=== PATIENT | female | born 1995 | race Caucasian/White ===

== ENCOUNTER → 2018-04-09 | Outpatient (CLI) | payer BC ==
[2018-04-09 16:45] LABS: BASO # 0.1 (0.0-0.2); BASO % 0.7 % (0.0-2.0); EOS % 0.3 % (0-4.0); GRAN # 3.9 (1.4-6.5); GRAN % 54.9 % (42.2-75.2); HEMATOCRIT 40.2 % (37.0-47.0); HEMOGLOBIN 13.6 g/dl (12.5-16.0); LYMPH # 2.5 (1.2-3.4); LYMPH % 35.8 % (20.0-51.0); MEAN CELL VOLUME 89 fl (80.0-100.0); MEAN CORPUSCULAR HEMOGLOBIN 30 pg (27.0-31.0); MEAN CORPUSCULAR HGB CONC 34 g/dl (33.0-37.0); MEAN PLATELET VOLUME 10.4 fl (7.4-10.4); MONO # 0.6 (0.1-0.6); PLATELET COUNT 307 K/mm3 (130-400); REDCELL DISTRIBUTION WIDTH-CV 12.6 % (11.5-14.5)
== END ==
LOC: ZCOL.LAB 16:26
PROVIDERS: Family Medicine
DX: R53.83 Other fatigue (principal); R23.8 Other skin changes

== ENCOUNTER → 2018-12-24 | Outpatient (CLI) | payer BC ==
[2018-12-24 16:30] LABS: BASO % 0.5 % (0.0-2.0); EOS % 0.3 % (0-4.0); GRAN # 3.9 (1.4-6.5); GRAN % 52.7 % (42.2-75.2); HEMATOCRIT 39.5 % (37.0-47.0); HEMOGLOBIN 13.3 g/dl (12.5-16.0); LYMPH % 39.8 % (20.0-51.0); MEAN CELL VOLUME 89 fl (80.0-100.0); MEAN CORPUSCULAR HEMOGLOBIN 30 pg (27.0-31.0); MEAN CORPUSCULAR HGB CONC 34 g/dl (33.0-37.0); MEAN PLATELET VOLUME 9.8 fl (7.4-10.4); MONO # 0.5 (0.1-0.6); MONO % 6.4 % (1.7-9.3); PLATELET COUNT 292 K/mm3 (130-400); RED BLOOD COUNT 4.45 M/mm3 (4.10-5.30); REDCELL DISTRIBUTION WIDTH-CV 12.4 % (11.5-14.5)
[2018-12-24 16:43] LABS: ALBUMIN 4.4 gm/dL (3.5-5.0); BILIRUBIN,TOTAL 0.3 mg/dL (0.0-1.0); CALCIUM 9.3 mg/dL (8.4-10.2); CREATININE, serum 0.6 (0.52-1.25); TOTAL PROTEIN 8.1 gm/dL (6.4-8.2)
[2018-12-24 16:47] LABS: POTASSIUM 3.9 mmol/L (3.4-5.0)
== END ==
LOC: COL.LAB 15:42
PROVIDERS: Family Medicine
DX: R19.4 Change in bowel habit (principal); R10.9 Unspecified abdominal pain

== ENCOUNTER → 2019-04-02 | Outpatient (CLI) | payer BC ==
[2019-04-02 18:38] LABS: HIV 1/2 Antibodies Non-Reactive; HIV-1p24 Antigen Non-Reactive
== END ==
LOC: ZCOL.LAB 16:28
PROVIDERS: Family Medicine
DX: Z11.3 Encounter for screening for infections with a predominantly sexual mode of transmission (principal); Z11.4 Encounter for screening for human immunodeficiency virus [HIV]

== ENCOUNTER → 2019-09-25 | Outpatient (CLI) | payer BC | LOC: ZCOL.LAB 15:12 | DX: R07.9 Chest pain, unspecified (principal) ==

== ENCOUNTER → 2020-01-06 | Outpatient (CLI) | payer SELFPAY | LOC: COL.LAB 16:04 | DX: R19.7 Diarrhea, unspecified (principal) ==